=== PATIENT | male | born 1950 | race Caucasian/White ===

== ENCOUNTER 2018-07-07 09:15 | Observation (INO) | payer MEDICARE ==
[2018-07-05 16:25] LABS: BASOPHILS % (AUTO) 0.5 % (0-1); EOSINOPHILS # (AUTO) 0.2 X10'3 (0-0.9); EOSINOPHILS % (AUTO) 2.4 % (0-6); LYMPHOCYTES % (AUTO) 15.8 % (21-51); MEAN CORPUSCULAR HEMOGLOBIN 27.4 PG (27.0-31.0); MEAN CORPUSCULAR HGB CONC 32.8 g/dL (33.0-36.5); MEAN CORPUSCULAR VOLUME 83.5 FL (78-98); MEAN PLATELET VOLUME 8.3 FL (7.4-10.4); MONOCYTES # (AUTO) 0.6 X10'3 (0-0.9); MONOCYTES % (AUTO) 8.6 % (2-12); NEUTROPHILS # (AUTO) 4.8 X10'3 (1.8-7.7); NEUTROPHILS % (AUTO) 72.7 % (42-75); PRE OP HEMATOCRIT 46.1 % (42.0-52.0); PRE OP HEMOGLOBIN 15.1 g/dL (14.0-17.9); PRE OP PLATELET COUNT 232 X10'3 (140-440); RED BLOOD COUNT 5.52 X10'6 (4.70-6.10)
[2018-07-05 16:37] LABS: ALBUMIN 3.6 G/DL (3.4-5.0); ALBUMIN/GLOBULIN RATIO 1.1 (1.1-1.5); ALKALINE PHOSPHATASE 93 IU/L (46-116); BLOOD UREA NITROGEN 25 MG/DL (7-18); BUN/CREATININE RATIO 28.1 (5.4-32.0); CALCIUM 8.6 MG/DL (8.5-10.1); CHLORIDE 104 MMOL/L (99-107); CREATININE 0.89 MG/DL (0.60-1.10); PRE OP ALT 36 U/L (30-65); PRE OP ANION GAP 6 (8-16); PRE OP AST 22 U/L (10-37); PRE OP BILIRUB, TOTAL 0.6 MG/DL (0.0-1.0); PRE OP GLUCOSE 119 MG/DL (70-104); PRE OP POTASSIUM 4.1 MMOL/L (3.4-5.1); PRE OP SODIUM 140 MMOL/L (135-145); TOTAL CARBON DIOXIDE 30.3 MMOL/L (24-32); eGFR 85 ML/MIN
[2018-07-05 16:38] LABS: CLARITY,URINE CLEAR (Clear); COLOR,URINE YELLOW (Yellow); GLUCOSE, URINE NEGATIVE (Neg); KETONES,URINE TRACE mg/dl (Neg); LEUKOCYTE ESTERASE ,URINE NEGATIVE (Neg); NITRITES, URINE NEGATIVE (Neg); OCCULT BLOOD,URINE NEGATIVE (Neg); PH,URINE 6.5 (4.8-8.0); PROTEIN,URINE 100 mg/dl (Neg)
[2018-07-05 16:41] LABS: UA COLLECTION TYPE NON-SPECIFIED
[2018-07-05 16:41] LABS: HEMOGLOBIN A1C 6.9 % (4.5-6.2)
[2018-07-05 16:45] LABS: PRE OP PROTIME 10.4 SECONDS (9.0-12.0)
[2018-07-05 16:56] LABS: SQUAMOUS EPITHELIAL CELL,UR FEW /LPF (FEW)
[2018-07-05 16:57] LABS: BACTERIA,URINE FEW /HPF (Neg); RBC,URINE 0-2 /HPF (0-2)
[2018-07-05 16:58] LABS: MUCUS STRANDS FEW /LPF (Neg)
[~2018-07-07] VITALS: Ht 180.3 cm; Wt 117.9 kg
[2018-07-07] VITALS (22 sets, daily range): BP systolic 101–155; BP diastolic 65–88
[~2018-07-07 09:15] MED LIST: ATOR40TA PO; FLUO-1 PO; METF500T PO; OMEG1CAP46 PO; cefazolin/dext.iso 2gm/100 ML IV ONE; famotidine 20mg tablet PO ONE; ringers solution, lacted 1,000 ML IV SCH
[2018-07-07] MEDS ORDERED: ceFAZolin 1000mg inj ONE (10:15)
[2018-07-07] MEDS ORDERED: BUPIVAcaine/PF 2.5mg/ml (0.25%) 10ml vial ONE (10:37)
[2018-07-07] MEDS ORDERED: LIDOcaine 1% 30ml preserv. free vial ONE (10:37)
--- NOTE | 2018-07-07 11:53 | NUR ---
TEMP 99.1. DR DESIR AND DR WOOTEN NOTIFIED Addendum: 07/07/18 at 1202 by Morelia Bhatti RN Amended: Links added.
[2018-07-07] MEDS ORDERED: MIDAZolam 1mg/ml 10ml vial ONE (12:06)
[2018-07-07] MEDS ORDERED: fentaNYL/PF 50MCG/1 ML 2ML syringe ONE (12:06)
[2018-07-07] MEDS ORDERED: ringers solution, lacted 1,000 ML IV SCH (12:28)
[2018-07-07] MEDS ORDERED: proCHLORperazine 10 MG/2 ml inj IV PRN (12:30)
[2018-07-07] MEDS ORDERED: ondansetron/PF 4mg/2ml inj IV PRN ×2 (12:30→13:30)
[2018-07-07] MEDS ORDERED: morphine 4 MG/ML inj SYRINge IV PRN ×2 (12:30)
[2018-07-07] MEDS ORDERED: meperidine/PF 25mg/ml syringe IV PRN ×3 (12:30)
[2018-07-07] MEDS ORDERED: propofol inj 20 ML IV ONE ×2 (13:12)
--- NOTE | 2018-07-07 13:28 | NUR ---
Received from OR via BED, accompanied by Anesthesiologist DR ESCALANTE and report given by Anesthesiologist. PT AWAKE SITTING UP IN BED, LEFT UPPER CHEST W/STERI-STRIPS COVERING INCISION, AREA SURROUNDING INCISION SLIGHTLY PUFFY BUT SOFT, CLEAR TAGADERM DRSG COVERING CDI, LEFT ARM IN SLING, FINGERS PWD. DR WOOTEN IN, 1 LITER NS BAG APPLIED OVER PM AND INCISION PER ORDERS. Addendum: 07/07/18 at 1527 by Jovanna Mccarthy RN Amended: Links added.
--- NOTE | 2018-07-07 14:42 | NUR ---
Patient in recovery room. I have received report from IKE Nugent and had the opportunity to ask questions. Awaiting pt's arrival to PCU room [id number].
--- NOTE | 2018-07-07 15:05 | NUR ---
Pt arrived via bed from recovery room. Vital signs obtained, pt oriented to room & call light use. Will obtain post-op vitals per protocol & continue to monitor closely. Educated pt about need to remain in sling for 24 hours post-op.
--- NOTE | 2018-07-07 15:08 | NUR ---
Report called to receiving nurse. Transferred via BED ON TELE #[id number], 2 BAGS OF PERSONAL Belongings AND 1 DUFFLE BAG SENT W/PT TO ROOM 3027B, RECEIVING RN AT BEDSIDE, BLL, CALL LIGHT GIVEN, SIDE RAILS UP X 2, PRESENT. Special Issues communicated to receiving nurse. YES. Addendum: 07/07/18 at 1546 by Jovanna Mccarthy RN Amended: Links added.
[2018-07-07] MEDS: Potassium Cl inj 20 MEQ in ringers solution, lacted 1,000 ML IV SCH ×2 (16:28→23:59)
[2018-07-07] MEDS: ceFAZolin 1GM/D5W- ADD-VANTAGE 50 ML IV SCH ×2 (16:29→23:59)
--- NOTE | 2018-07-07 18:12 | NUR ---
Orientee documentation: I have reviewed and agree with all interventions, assessments performed and documented by IKE Branch.
--- NOTE | 2018-07-07 18:12 | NUR ---
Problems reprioritized. Patient report given, questions answered & plan of care reviewed with IKE Soriano.
--- NOTE | 2018-07-07 18:42 | NUR ---
Patient in room PCU 3027. I have received report from Bri RAMIRES and had the opportunity to ask questions and assume patient care. Pt finnished dinner, IVF @125, RA, AAO, surgical wound dry intact with dressing covered
[2018-07-07] MEDS: metFORMIN 500mg tablet PO SCH (20:00)
--- NOTE | 2018-07-07 22:15 | NUR ---
Patient in room PCU 3027. I have received report from IKE Montes and had the opportunity to ask questions and assume patient care.
--- NOTE | 2018-07-07 22:30 | NUR ---
I agree with Francy Montes's physical assessment.
[2018-07-08 02:00] VITALS: BP 121/71
[2018-07-08] MEDS: HYDROcodone/acetaminophen 10/325mg tab PO PRN ×2 (03:45)
[2018-07-08] MEDS: Potassium Cl inj 20 MEQ in ringers solution, lacted 1,000 ML IV SCH ×2 (05:39→09:38)
[2018-07-08 05:42] LABS: BASOPHILS % (AUTO) 0.3 % (0-1); EOSINOPHILS # (AUTO) 0.2 X10'3 (0-0.9); EOSINOPHILS % (AUTO) 1.9 % (0-6); HEMATOCRIT 44.6 % (42.0-52.0); HEMOGLOBIN 14.6 g/dl (14.0-17.9); LYMPHOCYTES # (AUTO) 1.4 X10'3 (1.1-4.8); LYMPHOCYTES % (AUTO) 14.7 % (21-51); MEAN CORPUSCULAR HEMOGLOBIN 27.4 PG (27.0-31.0); MEAN CORPUSCULAR HGB CONC 32.7 g/dL (33.0-36.5); MEAN CORPUSCULAR VOLUME 83.7 FL (78-98); MEAN PLATELET VOLUME 8.3 FL (7.4-10.4); MONOCYTES # (AUTO) 0.8 X10'3 (0-0.9); MONOCYTES % (AUTO) 8.9 % (2-12); NEUTROPHILS # (AUTO) 6.8 X10'3 (1.8-7.7); NEUTROPHILS % (AUTO) 74.2 % (42-75); PLATELET COUNT 217 X10'3 (140-440); RED BLOOD COUNT 5.33 X10'6 (4.70-6.10); RED CELL DISTRIBUTION WIDTH 15.8 % (11.5-14.5); WHITE BLOOD COUNT 9.2 X10'3 (4.5-11.0)
--- NOTE | 2018-07-08 06:45 | NUR ---
Patient in room PCU 3027. I have received report from Aleksey RAMIRES and had the opportunity to ask questions and assume patient care.
--- NOTE | 2018-07-08 06:56 | NUR ---
Problems reprioritized. Patient report given, questions answered & plan of care reviewed with Francy Hong and FRANCY Sauer.
[2018-07-08 07:00] VITALS: BP 143/70
[2018-07-08] MEDS: metFORMIN 500mg tablet PO SCH (07:22)
[2018-07-08] MEDS ORDERED: atorvastatin 20mg tablet PO SCH (08:00)
[2018-07-08] MEDS ORDERED: FLUoxetine 20mg capsule PO SCH (08:00)
[2018-07-08] MEDS ORDERED: OMEGA-3/DHA/EPA/FISH OIL 1 EACH CAPSULE.DR PO SCH (08:00)
--- NOTE | 2018-07-08 08:00 | NUR ---
This nurse agrees with Braden Marinelli RN physical assessment.
--- NOTE | 2018-07-08 09:38 | NUR ---
Zana Pires for stat CXR.
[2018-07-08 11:00] VITALS: BP 151/79
--- NOTE | 2018-07-08 13:03 | NUR ---
Patient discharged stable without events to home via private vehicle, PIV removed with cannula intact, tele box removed, discharge instructions given, patient verbalizes understanding, patient's belongings returned to patient, pt wheeled out by staff to private vehicle
== END 2018-07-08 12:55 | disposition home or self-care (01) ==
LOC: PAS 09:15 → PCU 3S 13:29
PROVIDERS: ADMIT Surgery; ATTEND Surgery
DX: I44.1 Atrioventricular block, second degree (principal)
CPT/HCPCS: 33208; 36415; 71045; 71046; 71048; 76000; 80053; 81001; 82948; 83036; 85025; 85610; 85730; 87070; 87088; 93005; 96365; 96375; A6257; C1785; G0378; J0690; J2175; J2250; J2704; J3010; J3480; J3490; J7120; A4565; A7000

== ENCOUNTER 2022-08-26 06:46 | Day surgery (SDC) | payer MEDICARE ==
[2022-08-19 11:26] LABS: BASOPHILS % (AUTO) 0.9 % (0-1); EOSINOPHILS # (AUTO) 0.2 X10'3 (0-0.9); EOSINOPHILS % (AUTO) 3.1 % (0-6); HEMATOCRIT 42.1 % (42.0-52.0); HEMOGLOBIN 14.1 g/dl (14.0-17.9); LYMPHOCYTES # (AUTO) 1.1 X10'3 (1.1-4.8); LYMPHOCYTES % (AUTO) 21.7 % (21-51); MEAN CORPUSCULAR HEMOGLOBIN 30.9 PG (27.0-31.0); MEAN CORPUSCULAR HGB CONC 33.5 g/dL (33.0-36.5); MEAN CORPUSCULAR VOLUME 92.1 FL (78-98); MEAN PLATELET VOLUME 8.4 FL (7.4-10.4); MONOCYTES # (AUTO) 0.4 X10'3 (0-0.9); MONOCYTES % (AUTO) 7.8 % (2-12); NEUTROPHILS # (AUTO) 3.3 X10'3 (1.8-7.7); NEUTROPHILS % (AUTO) 66.5 % (42-75); PLATELET COUNT 207 X10'3 (140-440); RED BLOOD COUNT 4.57 X10'6 (4.70-6.10)
[2022-08-19 11:47] LABS: ALANINE AMINOTRANSFERASE 36 U/L (12-78); ALBUMIN 3.8 G/DL (3.4-5.0); ALBUMIN/GLOBULIN RATIO 1.2 (1.1-1.5); ALKALINE PHOSPHATASE 103 IU/L (46-116); ANION GAP 4 (8-16); ASPARTATE AMINO TRANSFERASE 21 U/L (10-37); BILIRUBIN,TOTAL 0.5 MG/DL (0.1-1.0); BLOOD UREA NITROGEN 23 MG/DL (7-18); BUN/CREATININE RATIO 22.5 (10.0-20.0); CALCIUM 9.1 MG/DL (8.5-10.1); CHLORIDE 103 MMOL/L (99-107); CREATININE 1.02 MG/DL (0.60-1.10); GLUCOSE 140 MG/DL (70-104); POTASSIUM 4.7 MMOL/L (3.5-5.1); SODIUM 138 MMOL/L (135-145); TOTAL CARBON DIOXIDE 31.3 MMOL/L (24-32); eGFR 72 ML/MIN
[2022-08-19 11:48] LABS: APTT 29 SECONDS (22-32)
[~2022-08-26] VITALS: Ht 180.3 cm; Wt 115.0 kg
[2022-08-26] VITALS (13 sets, daily range): BP systolic 123–152; BP diastolic 53–99
[~2022-08-26 06:46] MED LIST changes: -cefazolin/dext.iso 2gm/100 ML IV ONE; -famotidine 20mg tablet PO ONE; -ringers solution, lacted 1,000 ML IV SCH
[2022-08-26] MEDS ORDERED: LORazepam 0.5 MG tablet PO PRN (07:05)
[2022-08-26] MEDS ORDERED: diphenhydrAMINE 25mg capsule PO PRN (07:05)
[2022-08-26] MEDS ORDERED: normal saline 1,000 ML IV SCH (07:05)
[2022-08-26] MEDS ORDERED: nitroGLYCERIN 0.4mg SUBLingual tab SL PRN (07:05)
[2022-08-26] MEDS ORDERED: DEXTROSE 15 GM of carb/4 tabs (each vial/BOTTLE has 4 tablets) PO PRN ×2 (07:25)
[2022-08-26] MEDS ORDERED: glucagon, human recombinant 1mg kit SUBCUT PRN (07:25)
[2022-08-26] MEDS ORDERED: MESSAGE TO PHARMACY PO ONE (07:25)
[2022-08-26] MEDS ORDERED: insulin Lispro (HumaLOG) vial - multi-dose SQ SCH (07:25)
[2022-08-26] MEDS ORDERED: dextrose 50%-water 50ml dispensing syringe IV PRN ×2 (07:25)
[2022-08-26] MEDS ORDERED: MULT-1085 PO (07:34)
[2022-08-26] MEDS ORDERED: ASPI-611 PO (07:34)
[2022-08-26] MEDS ORDERED: NAPR220T67 PO (07:34)
[2022-08-26] MEDS ORDERED: MAGN400C PO (07:34)
[2022-08-26] MEDS ORDERED: LIDOcaine 1% 30ml preserv. free vial ONE (08:40)
[2022-08-26] MEDS ORDERED: iohexol 350MG/ML 100ml bottle IV ONE (08:40)
[2022-08-26] MEDS ORDERED: midazolam 1 mg/ML 2ml injection ONE ×2 (08:40→09:52)
[2022-08-26] MEDS ORDERED: iohexol 350 MG/ML 50ML vial IV ONE ×2 (08:40→09:48)
[2022-08-26] MEDS ORDERED: fentaNYL/PF 50MCG/1 ML 2ML syringe ONE (08:40)
[2022-08-26] MEDS ORDERED: proCHLORperazine 10 MG/2 ml inj IV PRN (10:30)
[2022-08-26] MEDS ORDERED: ondansetron/PF 4mg/2ml inj IV PRN (10:30)
[2022-08-26] MEDS ORDERED: HYDROcodone/acetaminophen 10/325mg tab PO PRN (10:30)
[2022-08-26] MEDS ORDERED: HYDROcodone/acetaminophen 5mg/325mg tablet PO PRN (10:30)
[2022-08-26] MEDS ORDERED: normal saline 1000ml 1,000 ML IV SCH (10:30)
[2022-08-26] MEDS ORDERED: OXAZEpam 15mg capsule PO PRN (10:30)
[2022-08-26] MEDS ORDERED: insulin glargine (Lantus) pen - multi-dose SQ SCH (21:00)
== END 2022-08-26 17:00 | disposition home or self-care (01) ==
LOC: SSTAY O 06:46
PROVIDERS: ATTEND Internal Medicine Cardiovascular Disease
DX: R94.39 Abnormal result of other cardiovascular function study (principal); I25.119 Atherosclerotic heart disease of native coronary artery with unspecified angina pectoris; G47.33 Obstructive sleep apnea (adult) (pediatric); M19.90 Unspecified osteoarthritis, unspecified site; E78.5 Hyperlipidemia, unspecified; E11.9 Type 2 diabetes mellitus without complications; K21.9 Gastro-esophageal reflux disease without esophagitis; E66.9 Obesity, unspecified; Z68.35 Body mass index [BMI] 35.0-35.9, adult; Z95.0 Presence of cardiac pacemaker; Z88.8 Allergy status to other drugs, medicaments and biological substances; Z98.890 Other specified postprocedural states; Z96.652 Presence of left artificial knee joint; Z79.899 Other long term (current) drug therapy; Z87.891 Personal history of nicotine dependence; Z95.1 Presence of aortocoronary bypass graft; Z79.01 Long term (current) use of anticoagulants; Z88.1 Allergy status to other antibiotic agents
CPT/HCPCS: 36415; 71046; 80053; 85025; 85610; 85730; 93005; 93459; 99152; 99153; J1644; J1815; J2250; J3010; J3490; J7030; Q0163; Q9967; A6258; C1760